=== PATIENT | male | born 1990 | race Hispanic/Latino ===

== ENCOUNTER 2016-11-02 20:09 | Emergency (ER) | payer OTHER ==
[~2016-11-02] VITALS: Ht 177.8 cm; Wt 76.7 kg
[~2016-11-02 20:09] MED LIST: NOHOMEMEDS
[2016-11-02 20:56] LABS: BASOPHIL COUNT 0.1 K/uL (0-0.1); EOSINOPHIL (%) 1.1 % (0-5); EOSINOPHIL COUNT 0.1 K/uL (0-0.3); HEMATOCRIT 42.5 % (38.0-50.0); IMMATURE GRANULOCYTE (%) 0.3 % (0.0-0.7); INSTRUMENT ABS NEUTROPHIL CT 6.1 K/uL; MCH 28.3 PG (29.0-34.0); MCHC 33.2 G/DL (30.0-36.0); MCV 85.2 FL (86-99); MONOCYTE (%) 7.6 % (3-12); MONOCYTE COUNT 0.8 K/uL (0-0.8); NEUTROPHIL (%) 60.7 % (45-76); NEUTROPHIL COUNT 6.1 K/uL (1.8-6.4); PLATELET COUNT 268 K/uL (156-360); RBC DIS.WIDTH-SD 40.6 % (39-53); RED BLOOD COUNT 4.99 M/uL (4.00-5.50)
[2016-11-02 21:06] LABS: CHLORIDE 104 mEq/L (99-109); POTASSIUM 3.8 mEq/L (3.7-5.4); SODIUM 138 mEq/L (136-147)
[2016-11-02 21:07] LABS: D-DIMER ELISA 0.22 mg/L FEU (< 0.57); GLUCOSE 99 mg/dL (70-99)
[2016-11-02 21:09] LABS: ANION GAP 8 MEQ/L (2-14)
[2016-11-02 21:12] LABS: GFR ESTIMATE (CALCULATED) > 59 mL/min/; UREA NITROGEN (BUN) 13 mg/dL (9-23)
[2016-11-02 21:16] LABS: TROP-I INTERPRETATION NEGATIVE; TROPONIN-I < 0.01 ng/mL (0.0-0.30)
[2016-11-02] MEDS ORDERED: LIDOCAINE700 MG TD (21:30)
[2016-11-02] MEDS ORDERED: MOTRIN600 MG PO (21:30)
[2016-11-02 22:04] VITALS: BP 122/79
== END 2016-11-02 22:31 | disposition home or self-care (01) ==
LOC: EME 20:09
PROVIDERS: Emergency Medicine
DX: R07.89 Other chest pain (principal); F17.200 Nicotine dependence, unspecified, uncomplicated
CPT/HCPCS: 71020; 80048; 84484; 85025; 85379; 93005; 99281; 99285; J1885; J7030

== ENCOUNTER 2017-03-01 09:23 | Emergency (ER) | payer OTHER ==
[~2017-03-01] VITALS: Ht 787.4 cm; Wt 74.0 kg
[~2017-03-01 09:23] MED LIST changes: +LIDOCAINE700 MG TD; +MOTRIN600 MG PO
[2017-03-01 09:55] LABS: HEMATOCRIT 42.4 % (38.0-50.0); MCH 28.7 PG (29.0-34.0); MCHC 33.7 G/DL (30.0-36.0); MEAN PLAT.VOLUME 9.7 uM^3 (9.0-12.4); PLATELET COUNT 308 K/uL (156-360); RBC DIS.WIDTH-CV 12.8 % (11.8-14.6); RBC DIS.WIDTH-SD 39.2 % (39-53); RED BLOOD COUNT 4.99 M/uL (4.00-5.50); WHITE BLOOD COUNT 12.9 K/uL (4.1-10.2)
[2017-03-01 10:05] LABS: CHLORIDE 102 mEq/L (99-109); POTASSIUM 3.4 mEq/L (3.7-5.4); SODIUM 140 mEq/L (136-147)
[2017-03-01 10:07] LABS: GLUCOSE 99 mg/dL (70-99)
[2017-03-01 10:09] LABS: ANION GAP 10 MEQ/L (2-14)
[2017-03-01 10:11] LABS: GFR ESTIMATE (CALCULATED) > 59 mL/min/
[2017-03-01 10:12] LABS: UREA NITROGEN (BUN) 15 mg/dL (9-23)
[2017-03-01 10:40] VITALS: BP 109/74
== END 2017-03-01 10:41 | disposition home or self-care (01) ==
LOC: EME 09:23
PROVIDERS: Emergency Medicine
DX: R51 Headache (principal); F17.200 Nicotine dependence, unspecified, uncomplicated
CPT/HCPCS: 80048; 85027; 99281; 99283; J0780; J1200; J7030